=== PATIENT | female | born 1960 | race Caucasian/White ===

== ENCOUNTER 2017-08-09 13:19 | Emergency (ER) | payer MEDICAID ==
[~2017-08-09] VITALS: Ht 172.7 cm; Wt 107.0 kg
[2017-08-09 13:37] VITALS: BP 153/80
[2017-08-09] MEDS ORDERED: VITAMIN D (13:37)
[2017-08-09] MEDS ORDERED: VALSARTAN (13:37)
[2017-08-09] MEDS ORDERED: HYDROCHLOROTHIAZIDE (13:37)
[2017-08-09] MEDS ORDERED: IPRATROPIUM BROMIDE (0.02%) 0.5MG/2.5ML NEB HHN STA (14:43)
[2017-08-09] MEDS ORDERED: PREDNISONE 20MG TABLET PO STA (14:43)
[2017-08-09] MEDS ORDERED: ALBUTEROL (0.083%) 2.5MG/3ML NEB HHN STA (14:43)
[2017-08-09] MEDS ORDERED: KETOROLAC 60MG/2ML VIAL IM ONE (14:45)
[2017-08-09] MEDS ORDERED: METOCLOPRAMIDE HCL 10MG TABLET PO ONE (14:45)
[2017-08-09] MEDS: SODIUM CHLORIDE 0.9% 1,000 ML IV NR ×2 (15:46→16:49)
== END 2017-08-09 16:57 | disposition home or self-care (01) ==
LOC: ER 13:19
DX: J45.909 Unspecified asthma, uncomplicated (principal); R51 Headache; I10 Essential (primary) hypertension; Z88.0 Allergy status to penicillin; Z90.49 Acquired absence of other specified parts of digestive tract
CPT/HCPCS: 71045; 93005; 96360; 96372; 99284; J1885; J7030; J7512; J7611; Z7610; J8597

== ENCOUNTER 2017-10-10 13:47 | Emergency (ER) | payer MEDICAID ==
[~2017-10-10] VITALS: Ht 172.7 cm; Wt 107.0 kg
[~2017-10-10 13:47] MED LIST: HYDROCHLOROTHIAZIDE; VALSARTAN; VITAMIN D
[2017-10-10 13:59] VITALS: BP 146/91
== END 2017-10-10 14:44 | disposition home or self-care (01) ==
LOC: ER 14:04
DX: L21.9 Seborrheic dermatitis, unspecified (principal); J45.909 Unspecified asthma, uncomplicated; I10 Essential (primary) hypertension; Z88.0 Allergy status to penicillin; Z90.49 Acquired absence of other specified parts of digestive tract
CPT/HCPCS: 99283